=== PATIENT | female | born 1965 | race Hispanic/Latino ===

== ENCOUNTER 2020-06-14 12:59 | Emergency (ER) | payer OTHER, SELFPAY ==
[2020-06-14] MEDS ORDERED: KETOROLAC 30MG VIAL (30MG/ML) ONE (13:39)
[2020-06-14] MEDS ORDERED: ORPHENADRINE CITRATE 30 MG/ML ML ONE (13:39)
== END 2020-06-14 14:16 | disposition home or self-care (01) ==
LOC: EDH 12:59
DX: M25.511 Pain in right shoulder (principal); I10 Essential (primary) hypertension; Z98.890 Other specified postprocedural states
CPT/HCPCS: 73030; 96372 ×2; 99284; J1885; J2360